=== PATIENT | male | born 1950 | race Caucasian/White ===

== ENCOUNTER 2023-05-22 07:24 | Day surgery (SDC) | payer OTHER, MEDICAID ==
[~2023-05-22] VITALS: Ht 185.4 cm; Wt 144.5 kg
[~2023-05-22 07:24] MED LIST: APIX5TAB PO; ATOR20TA PO; BALANCED SALT 15 ML OPHTHALMIC IRRIG.SOLN ONE; DAPA10TA PO; DOCU-412 PO; EPINEPHrine 1:1,000 [1 MG/ML] VIAL ONE; FURO20 PO; GABA-1181 PO; KETOROLAC TROMETHAMINE 0.5% 5 ML OPHTHALMIC SOLUTION ONE; LIDOCAINE/PF 1% 2 ML VIAL ONE; LISI-893 PO; METO25 PO; MOXIFLOXACIN HCL 0.5% 3 ML OPHTHALMIC SOLUTION ONE; PANT-31 PO; PHENYLEPHRINE HCL 2.5% 2 ML OPHTHALMIC SOLUTION ONE; POTA-92 PO; POVIDONE-IODINE 5% 30 ML OPHTHALMIC SOLUTION ONE; PREDAOS OU; RINGERS SOLUTION,LACTATED 500 ML IV ONE; SEMA1PEN3 SQ; TETRACAINE HCL/PF 0.5% 4 ML OPHTHALMIC SOLUTION ONE; TRAZ-252 PO; TROPICAMIDE 1% 2 ML OPHTHALMIC SOLUTION ONE
[2023-05-22] MEDS ORDERED: HYALURONATE SOD/CHONDROITIN SOD 0.5 ML VIAL IO ONE (07:25)
[2023-05-22] MEDS ORDERED: CHONDR SULF A SOD/HYALURONATE 1.05 ML KIT IO ONE (07:25)
[2023-05-22] MEDS ORDERED: FentaNYL CITRATE PF 100 MCG/2 ML VIAL IVP ONE (07:25)
[2023-05-22] MEDS ORDERED: MIDAZOLAM HCL 2 MG/2 ML VIAL IVP ONE (07:25)
[2023-05-22] MEDS ORDERED: HYALURONATE SOD 8.5MG/0.85ML 10 MG/ML SYRINGE IO ONE (07:25)
[2023-05-22] MEDS: MOXIFLOXACIN HCL 0.5% 3 ML OPHTHALMIC SOLUTION OS SCH ×3 (07:48→07:58)
[2023-05-22] MEDS: KETOROLAC TROMETHAMINE 0.5% 5 ML OPHTHALMIC SOLUTION OS SCH ×3 (07:48→07:57)
[2023-05-22] MEDS: PHENYLEPHRINE HCL 2.5% 2 ML OPHTHALMIC SOLUTION OS SCH ×3 (07:48→07:58)
[2023-05-22] MEDS: TROPICAMIDE 1% 2 ML OPHTHALMIC SOLUTION OS SCH ×3 (07:48→07:58)
== END 2023-05-22 09:35 | disposition home or self-care (01) ==
LOC: SURGERY 07:24
PROVIDERS: ATTEND Ophthalmology
DX: H25.12 Age-related nuclear cataract, left eye (principal); G47.33 Obstructive sleep apnea (adult) (pediatric); Z88.0 Allergy status to penicillin; Z79.899 Other long term (current) drug therapy
CPT/HCPCS: 66984; 93005; J0171; J3010; J3490; J2250; Q9967; J7120; V2632